=== PATIENT | female | born 1995 | race Caucasian/White ===

== ENCOUNTER 2019-08-25 19:50 | Emergency (ER) | payer OTHER, SELFPAY ==
--- NOTE | 2019-08-25 19:53 | ED.EYEPROB ---
HPI - Eye Problem General Chief complaint: Eye Problems Stated complaint: right eye injury Time Seen by Provider: 08/25/19 19:52 Source: patient and RN notes reviewed History of Present Illness HPI Narrative: Patient is a 23-year-old female that presents the urgent care with complaints of right eye irritation to the bottom lid. Patient states that approximately 20 minutes ago she was giving her son a bath and she thinks he scratched the bottom lid with his fingernail. Patient states that she used [id number] [employer] eyedrops prior to arrival. Patient denies any vision loss. No other acute complaints. No acute distress noted. Patient read the plan of care. Related Data Home Medications Medication Instructions Recorded Confirmed sertraline 50 mg PO DAILY 08/25/19 08/25/19 Allergies Allergy/AdvReac Type Severity Reaction Status Date / Time Penicillins Allergy Unknown Anaphylactic Verified 08/25/19 19:53 Shock Review of Systems Review of Systems: Narrative: CONSTITUTIONAL: Denies fever, chills, or sweats. EYES: Reports of right eye irritation and pain ENT: Denies rhinorrhea, congestion, sore throat, or otalgia. CARDIOVASCULAR: Denies chest pain, palpitations, or edema. RESPIRATORY: Denies cough or dyspnea. GASTROINTESTINAL: Denies abdominal pain, nausea, vomiting, or diarrhea. GENITOURINARY: Denies dysuria or hematuria. SKIN: Denies rash or itching. MUSCULOSKELETAL: Denies back pain, joint pain, or myalgia. NEUROLOGIC: Denies headache, numbness, or weakness. All other systems reviewed are negative, except as documented in HPI. PMFSH Comments At the time of my signature, I reviewed and agree with the nursing past medical, surgical, social, and family history. There is no relevant family history pertinent to the patient complaint. Exam Narrative: Exam Narrative: GENERAL: This is a well-nourished, well-developed patient, in no apparent distress. HEAD: normocephalic, atraumatic. EYES: PERRL. Sclera clear/white. Vision is grossly intact. Notable pinpoint external hordeolum to the right lower eyelid towards the more lateral aspect with mild surrounding erythema EARS: External ears normal NOSE: External nose normal with no obvious nasal discharge THROAT: Mucous membranes moist NECK: Neck supple CARDIOVASCULAR: Regular rate and rhythm without murmurs, gallops, or rubs. RESPIRATORY: Clear to auscultation. Breath sounds equal bilaterally. No wheezes, rales, or rhonchi. SKIN: warm, intact with no suspicious lesions or rash, good texture and turgor. NEURO: awake, alert, and oriented to person, place and time. There were no obvious focal neurologic abnormalities. EXTREMITIES: No clubbing, cyanosis, or edema. Course Vital Signs Vital signs: Vital Signs Temperature 98.6 F 08/25/19 19:55 Pulse Rate 100 08/25/19 19:55 Respiratory Rate 18 08/25/19 19:55 Blood Pressure 102/64 08/25/19 19:55 Pulse Oximetry 99 08/25/19 19:55 Temperature 98.6 F 08/25/19 19:55 Pulse Rate 100 08/25/19 19:55 Respiratory Rate 18 08/25/19 19:55 Blood Pressure 102/64 08/25/19 19:55 Pulse Oximetry 99 08/25/19 19:55 Reviewed MDM - Eye Problem MDM Narrative Medical decision making narrative: Advised the patient to use eyedrops as directed. However, irna-nqr-dityyhz stye medication works very well if eyedrops are pricey. Use warm compress to the eye. May use Claritin or Zyrtec as needed for itchiness. Styes tend to resolve on their own within a few days. If the area becomes more irritated or increases in redness and size?follow-up with an liquor store manager. Follow-up with your PCP within 2 to 5 days or for worsening symptoms or failure to improve. Differential Diagnosis Differential diagnosis: Likely corneal abrasion, conjunctivitis and periorbital cellulitis Critical Care Time Critical Care Time Critical Care Time: No Discharge Plan Discharge Clinical Impression: Hordeolum externum (stye) Qualifiers
[2019-08-25 19:55] VITALS: BP 102/64; PULSE 100; RESP 18; TEMP 37; O2SAT 99
== END 2019-08-25 20:05 | disposition home or self-care (01) ==
PROVIDERS: Emergency Provider Nurse Practitioner Family
DX: H00.012 Hordeolum externum right lower eyelid (principal)
CPT/HCPCS: 99213; G0463

== ENCOUNTER 2020-03-04 11:25 | Emergency (ER) | payer OTHER, SELFPAY ==
[2020-03-04 11:32] VITALS: BP 118/73; PULSE 91; RESP 18; TEMP 36.9; O2SAT 98
--- NOTE | 2020-03-04 11:59 | ED.GENADULT ---
HPI - General Adult General Chief complaint: Ear Stated complaint: tooth and ear pain Time Seen by Provider: 03/04/20 11:59 Source: patient and RN notes reviewed Mode of arrival: ambulatory Limitations: no limitations History of Present Illness HPI narrative: 24-year-old female who presents to [facility] care with complaints of left ear pain for the past 3 weeks which is now radiating to the left side of her face and into her lower jaw. Patient denies any fever chills or sweats, denies any sinus congestion or any drainage, no cough or any sinus pressure. Patient denies any dental pain or dental caries, states she maintains routine dental care. Patient states that she has been taking Tylenol and Aleve for her discomfort. MD complaint: ear pain left ear Onset (ago): week(s) (3) Location: face (left ear , left side of face and into jaw) Radiation: other (jaw) Severity: severe Severity scale (1-10): 8 Quality: aching Pain Consistency: constant Related Data Allergies Allergy/AdvReac Type Severity Reaction Status Date / Time Penicillins Allergy Unknown Anaphylactic Verified 03/04/20 11:38 Shock amoxicillin Allergy Anaphylactic Verified 03/04/20 11:39 Shock Review of Systems Review of Systems: Narrative: CONSTITUTIONAL: Denies fever, chills, or sweats. EYES: Denies visual changes, redness, or discharge. ENT: Denies rhinorrhea, congestion, sore throat, positive left ear otalgia with radiation to left jaw. CARDIOVASCULAR: Denies chest pain, palpitations, or edema. RESPIRATORY: Denies cough or dyspnea. GASTROINTESTINAL: Denies abdominal pain, nausea, vomiting, or diarrhea. GENITOURINARY: Denies dysuria or hematuria. SKIN: Denies rash or itching. MUSCULOSKELETAL: Denies back pain, joint pain, or myalgia. NEUROLOGIC: Denies headache, numbness, or weakness. PSYCHIATRIC: History of anxiety or depression. All systems reviewed & are unremarkable except as noted in HPI and below PMFSH Past Medical History Medical History (Updated 03/04/20 @ 19:46 by Leonora Chapman NP) Anxiety and depression Surgical History Surgical History (Updated 03/04/20 @ 19:45 by Leonora Chapman NP) History of tonsillectomy and adenoidectomy History of tubal ligation Social History Social History (Updated 03/04/20 @ 19:44 by Leonora Chapman NP) Smoking status: Never smoker Alcohol intake: current Substance use: never Living arrangements: with family Gender identity (if verbalized by the patient): Female Comments At time of signature, agree with nursing past medical, surgical, social history. There is no relevant family history pertinent to the presenting complaint Exam Narrative: Exam Narrative: GENERAL: Well-appearing, well-nourished, and in no acute distress. HEAD: Normocephalic, atraumatic. EYES: PERRLA and EOMI. ENT: Nares clear, no rhinorrhea or epistaxis. Mucous membranes moist.right ear normal with good light reflex, left ear occluded with wax removed with soft curette with canal which was un-visualized due to wax, reddened with no ear drainage noted. throat pink with no swelling or enlargement of tonsils NECK: Supple.no lymphadenopathy CHEST: Clear to auscultation. No respiratory distress.SAO2 98% on room air HEART: Regular rate and rhythm. No murmur heard. Normal peripheral pulses. ABDOMEN: Soft, nontender, nondistended, normal active bowel sounds. EXTREMITIES: Normal range of motion. No edema. SKIN: Warm, dry, no rash. NEURO: No focal deficits. Alert and oriented x3. Course Vital Signs Vital signs: Vital Signs Temperature 36.9 C 03/04/20 11:32 Pulse Rate 91 03/04/20 11:32 Respiratory Rate 18 03/04/20 11:32 Blood Pressure 118/73 03/04/20 11:32 Pulse Oximetry 98 03/04/20 11:32 Temperature 36.9 C 03/04/20 11:32 Pulse Rate 91 03/04/20 11:32 Respiratory Rate 18 03/04/20 11:32 Blood Pressure 118/73 03/04/20 11:32 Pulse Oximetry 98 03/04/20 11:32 Procedures Ear Wax Remova
== END 2020-03-04 12:24 | disposition home or self-care (01) ==
PROVIDERS: Emergency Provider Registered Nurse
DX: H61.22 Impacted cerumen, left ear (principal); H60.502 Unspecified acute noninfective otitis externa, left ear
CPT/HCPCS: 69210; 99213; G0463

== ENCOUNTER 2020-03-27 10:32 | Emergency (ER) | payer OTHER, SELFPAY ==
[2020-03-27 10:38] VITALS: BP 120/86; PULSE 95; RESP 18; TEMP 37.1; O2SAT 98
--- NOTE | 2020-03-27 10:45 | ED.DENTAL ---
HPI - Dental/Oral General Chief complaint: Dental/Oral Stated complaint: tooth/mouth pain Time Seen by Provider: 03/27/20 10:43 Source: patient and RN notes reviewed Mode of arrival: ambulatory Limitations: no limitations History of Present Illness HPI Narrative: 24-year-old female presents with concern for pain after having a tooth pulled 6 days ago. Reports she had an infection in a tooth, that was pulled. Reports she had taken doxycycline prior to the tooth being pulled. Denies taking antibiotics since the tooth being pulled. Reports the pain is beneath the extraction site, and her left jaw, radiating to her left ear and the left neck area. She reports taking ibuprofen regularly and [place] as needed. MD Complaint: tooth pain Related Data Home Medications Medication Instructions Recorded Confirmed hydrocodone-acetaminophen 1 tablet PO Q6H PRN 03/27/20 03/27/20 Allergies Allergy/AdvReac Type Severity Reaction Status Date / Time Penicillins Allergy Unknown Anaphylactic Verified 03/27/20 10:44 Shock amoxicillin Allergy Anaphylactic Verified 03/27/20 10:44 Shock Review of Systems Review of Systems: Narrative: CONSTITUTIONAL: Denies malaise, chills, sweats, or fever. EYES: Denies visual changes, redness, or discharge. ENT: Denies rhinorrhea, congestion, sinus pain, otalgia or sore throat. Reports left jaw pain, swelling CARDIOVASCULAR: Denies chest pain, palpitations, or edema. RESPIRATORY: Denies cough or dyspnea. GASTROINTESTINAL: Denies abdominal pain, nausea, vomiting MUSCULOSKELETAL: Denies myalgia. NEUROLOGIC: Denies headache. All systems reviewed & are unremarkable except as noted in HPI and below PMFSH Past Medical History Medical History (Updated 03/27/20 @ 10:51 by Brianna Huntley NP) Anxiety and depression Surgical History Surgical History (Updated 03/04/20 @ 19:45 by Leonora Chapman NP) History of tonsillectomy and adenoidectomy History of tubal ligation Social History Social History (Updated 03/04/20 @ 19:44 by Leonora Chapman NP) Smoking status: Never smoker Alcohol intake: current Substance use: never Gender identity (if verbalized by the patient): Female Comments At time of signature, agree with nursing past medical, surgical, social and family history. There is no relevant family history pertinent to the presenting complaint Exam Narrative: Exam Narrative: GENERAL: Well-appearing, well-nourished, and in no acute distress. HEAD: Normocephalic, atraumatic. EYES: PERRLA, conjunctivae clear ENT: Nares clear. Mucous membranes moist. TM pearly de [place] rosa with sharp light reflex bilaterally; no tragal tenderness. Oropharynx without edema, erythema or lesions. NECK: Supple. No lymphadenopathy. CHEST: No respiratory distress. Speaks in full sentences. HEART: Regular rate and rhythm. SKIN: Warm, dry, no rash. NEURO: Alert and oriented x3. PSYCH: Normal mood and affect Course Course Emergency Course: Patient is aware of diagnosis, understands and agrees to treatment plan. Anticipatory guidance given. Patient agrees to follow-up as directed and is aware of reasons to seek care at the emergency department. Portions of this record may have been created with voice recognition software Vital Signs Vital signs: Vital Signs Temperature 98.7 F 03/27/20 10:38 Pulse Rate 95 03/27/20 10:38 Respiratory Rate 18 03/27/20 10:38 Blood Pressure 120/86 03/27/20 10:38 Pulse Oximetry 98 03/27/20 10:38 Temperature 98.7 F 03/27/20 10:38 Pulse Rate 95 03/27/20 10:38 Respiratory Rate 18 03/27/20 10:38 Blood Pressure 120/86 03/27/20 10:38 Pulse Oximetry 98 03/27/20 10:38 Reviewed. MDM - Dental/Oral MDM Narrative Medical decision making narrative: Patients pain and complaint coupled with physical findings are consistant with dentalgia. There are no focal signs of space occupying lesions that are compromising to the airway; no dysphagia, odynopha
== END 2020-03-27 10:56 | disposition home or self-care (01) ==
PROVIDERS: Emergency Provider Nurse Practitioner
DX: K04.7 Periapical abscess without sinus (principal)
CPT/HCPCS: 99213; G0463

== ENCOUNTER 2020-11-14 14:28 | Emergency (ER) | payer OTHER, SELFPAY ==
[2020-11-14 14:38] VITALS: BP 128/83; PULSE 129; RESP 20; TEMP 36.3; O2SAT 99
--- NOTE | 2020-11-14 14:38 | ED.URI ---
HPI - URI/Sore Throat General Chief Complaint: Ear Stated Complaint: Pain on left side in Ear and Face Time Seen by Provider: 11/14/20 14:38 Source: patient and RN notes reviewed History of Present Illness HPI Narrative: Patient is a 25-year-old female who presents the urgent care with complaints of ongoing left ear pain that is now radiating to her throat and left face. Patient states that on the she was seen at another local clinic and prescribed eardrops and clindamycin. Patient states that she was unable to finish the clindamycin because it made her very sick with vomiting and diarrhea . Patient states that she has not been swimming or submerging her head underwater. States that she did finish the prescription of eardrops. States that she has been using Tylenol and Aleve for the pain with little improvement. Denies of any fever or other upper respiratory complaints. No other acute complaints. No acute distress noted. Patient aware of the plan of care. Some parts of this dictation were generated by voice recognition software and may contain typographical and/or grammatical inaccuracies. Related Data Home Medications Medication Instructions Recorded Confirmed hydrocodone-acetaminophen 1 tablet PO Q6H PRN 03/27/20 03/27/20 L norgest/e.estradiol-e.estrad 0.15 tablet PO DAILY 11/14/20 11/14/20 sertraline 50 mg PO DAILY 11/14/20 11/14/20 Allergies Allergy/AdvReac Type Severity Reaction Status Date / Time Penicillins Allergy Unknown Anaphylactic Verified 03/27/20 10:44 Shock amoxicillin Allergy Anaphylactic Verified 03/27/20 10:44 Shock Review of Systems Review of Systems: Narrative: CONSTITUTIONAL: Denies fever, chills, or sweats. EYES: Denies visual changes, redness, or discharge. ENT: Denies rhinorrhea, congestion, sore throat. Reports of left otalgia CARDIOVASCULAR: Denies chest pain, palpitations, or edema. RESPIRATORY: Denies cough or dyspnea. GASTROINTESTINAL: Denies abdominal pain, nausea, vomiting, or diarrhea. GENITOURINARY: Denies dysuria or hematuria. SKIN: Denies rash or itching. MUSCULOSKELETAL: Denies back pain, joint pain, or myalgia. NEUROLOGIC: Denies headache, numbness, or weakness. All other systems reviewed are negative, except as documented in HPI. [facility] Past Medical History Medical History (Updated 11/14/20 @ 14:50 by MICHAEL Sanchez) Anxiety and depression Surgical History Surgical History (Updated 03/04/20 @ 19:45 by Leonora Chapman NP) History of tonsillectomy and adenoidectomy History of tubal ligation Social History Social History (Updated 03/04/20 @ 19:44 by Leonora Chapman NP) Smoking status: Never smoker Alcohol intake: current Substance use: never Gender identity (if verbalized by the patient): Female Comments At the time of my signature, I reviewed and agree with the nursing past medical, surgical, social, and family history. There is no relevant family history pertinent to the patient complaint. Exam Narrative: Exam Narrative: GENERAL: This is a well-nourished, well-developed patient, in no apparent distress. HEAD: normocephalic, atraumatic. EYES: PERRL. Sclera clear/white. Vision is grossly intact. EARS: External ears normal, right auditory canal clear and without drainage, mild fluid noted behind right TM, right TM normal without perforation. Mild erythema noted to left auditory canal without edema or drainage. Left TM injected with large effusion. Hearing grossly intact. NOSE: External nose normal with no obvious nasal discharge, nares without redness, no rhinorrhea. THROAT: Mucous membranes moist, posterior pharynx clear. Moderate postnasal drainage NECK: Neck supple CARDIOVASCULAR: Regular rate and rhythm without murmurs, gallops, or rubs. RESPIRATORY: Clear to auscultation. Breath sounds equal bilaterally. No wheezes, rales, or rhonchi. SKIN: warm, intact with no suspicious lesions or rash, good texture and turgor. NE
== END 2020-11-14 15:00 | disposition home or self-care (01) ==
PROVIDERS: Emergency Provider Nurse Practitioner Family; PCP Hospitalist
DX: H66.92 Otitis media, unspecified, left ear (principal); F41.9 Anxiety disorder, unspecified; F32.9 Major depressive disorder, single episode, unspecified
CPT/HCPCS: 99213; G0463

== ENCOUNTER 2021-01-09 16:36 | Emergency (ER) | payer OTHER, SELFPAY ==
--- NOTE | 2021-01-09 16:39 | ED.DENTAL ---
HPI - Dental/Oral General Chief complaint: Dental/Oral Stated complaint: Toothache Time Seen by Provider: 01/09/21 16:39 Source: patient and RN notes reviewed History of Present Illness HPI Narrative: Patient is a 25-year-old female who presents the urgent care with complaints of upper left dental pain. Patient states that started approximately 1 week ago and is been increase in pain the last few days. Patient states that her dentist did tell her it needs to be removed but she has not had time to get the removal complete. Patient has been taking Tylenol and ibuprofen without much relief. States that she now has some left facial swelling. No other acute complaints. No acute distress noted. Patient aware of the plan of care. Some parts of this dictation were generated by voice recognition software and may contain typographical and/or grammatical inaccuracies. Related Data Home Medications Medication Instructions Recorded Confirmed L norgest/e.estradiol-e.estrad 0.15 tablet PO DAILY 11/14/20 01/09/21 sertraline 50 mg PO DAILY 11/14/20 01/09/21 Allergies Allergy/AdvReac Type Severity Reaction Status Date / Time amoxicillin Allergy Severe Anaphylactic Verified 01/09/21 17:08 Shock clindamycin Allergy Severe Swelling Verified 01/09/21 17:08 of Lip/Tongue/Throat Penicillins Allergy Severe Anaphylactic Verified 01/09/21 17:07 Shock Review of Systems Review of Systems: CONSTITUTIONAL: Denies fever, chills, or sweats. EYES: Denies visual changes, redness, or discharge. ENT: Denies rhinorrhea, congestion, sore throat, or otalgia. Reports of left upper dental pain CARDIOVASCULAR: Denies chest pain, palpitations, or edema. RESPIRATORY: Denies cough or dyspnea. GASTROINTESTINAL: Denies abdominal pain, nausea, vomiting, or diarrhea. GENITOURINARY: Denies dysuria or hematuria. SKIN: Denies rash or itching. MUSCULOSKELETAL: Denies back pain, joint pain, or myalgia. NEUROLOGIC: Denies headache, numbness, or weakness. All other systems reviewed are negative, except as documented in HPI. [facility] Past Medical History Medical History (Updated 01/09/21 @ 16:53 by MICHAEL Sanchez) Anxiety and depression Surgical History Surgical History (Updated 03/04/20 @ 19:45 by Leonora Chapman NP) History of tonsillectomy and adenoidectomy History of tubal ligation Social History Social History (Updated 03/04/20 @ 19:44 by Leonora Chapman NP) Smoking status: Never smoker Alcohol intake: current Substance use: never Gender identity (if verbalized by the patient): Female Comments At the time of my signature, I reviewed and agree with the nursing past medical, surgical, social, and family history. There is no relevant family history pertinent to the patient complaint. Exam Narrative: GENERAL: This is a well-nourished, well-developed patient, in no apparent distress. HEAD: normocephalic, atraumatic. EYES: PERRL. Sclera clear/white. Vision is grossly intact. EARS: External ears normal, auditory canals clear and without drainage, TMs normal without perforation. Hearing grossly intact. NOSE: External nose normal with no obvious nasal discharge, nares without redness, no rhinorrhea. THROAT: Mucous membranes moist, posterior pharynx clear. DENTAL: Buccal cusp of tooth #16 fractured/open with mild surrounding erythema, NECK: Neck supple, non-tender without lymphadenopathy CARDIOVASCULAR: Regular rate and rhythm without murmurs, gallops, or rubs. RESPIRATORY: Clear to auscultation. Breath sounds equal bilaterally. No wheezes, rales, or rhonchi. SKIN: warm, intact with no suspicious lesions or rash, good texture and turgor. NEURO: awake, alert, and oriented to person, place and time. There were no obvious focal neurologic abnormalities. EXTREMITIES: No clubbing, cyanosis, or edema. Course Vital Signs Vital signs: Vital Signs Temperature 98.7 F 01/09/21 16:42 Pulse Rate 100 01/09/21 16:42 R
[2021-01-09 16:42] VITALS: BP 123/69; PULSE 100; RESP 20; TEMP 37.1; O2SAT 100
== END 2021-01-09 17:10 | disposition home or self-care (01) ==
PROVIDERS: Emergency Provider Nurse Practitioner Family
DX: K04.7 Periapical abscess without sinus (principal); F41.9 Anxiety disorder, unspecified; F32.9 Major depressive disorder, single episode, unspecified
CPT/HCPCS: 99213; G0463

== ENCOUNTER 2022-02-03 10:40 | Emergency (ER) | payer OTHER, SELFPAY ==
--- NOTE | 2022-02-03 10:41 | ED.URI ---
HPI - URI/Sore Throat General Chief Complaint: Upper Respiratory Infection Stated Complaint: Sore Throat Time Seen by Provider: 02/03/22 10:41 Source: patient and RN notes reviewed History of Present Illness HPI Narrative: Patient is a 26-year-old female who presents the urgent care with complaints of a sore throat, headache and fever since . Patient denies of any ill exposures. States that she has been taking Tylenol, ibuprofen and cold and flu medication. Patient states the sore throat is now because neck pain. Patient states her children are all now symptomatic since this weekend. No other acute complaints. No acute distress noted. Patient aware of the plan of care. Some parts of this dictation were generated by voice recognition software and may contain typographical and/or grammatical inaccuracies. Related Data Home Medications Medication Instructions Recorded Confirmed sertraline 50 mg tablet 50 mg PO DAILY 11/14/20 02/03/22 Allergies Allergy/AdvReac Type Severity Reaction Status Date / Time amoxicillin Allergy Severe Anaphylactic Verified 02/03/22 11:17 Shock clindamycin Allergy Severe Swelling Verified 02/03/22 11:17 of Lip/Tongue/Throat Penicillins Allergy Severe Anaphylactic Verified 02/03/22 11:17 Shock Review of Systems Review of Systems: CONSTITUTIONAL: Reports a fever EYES: Denies visual changes, redness, or discharge. ENT: Denies rhinorrhea, congestion, otalgia. Reports of sore throat CARDIOVASCULAR: Denies chest pain, palpitations, or edema. RESPIRATORY: Denies cough or dyspnea. GASTROINTESTINAL: Denies abdominal pain, nausea, vomiting, or diarrhea. GENITOURINARY: Denies dysuria or hematuria. SKIN: Denies rash or itching. MUSCULOSKELETAL: Denies back pain, joint pain, or myalgia. NEUROLOGIC: Reports of headache All other systems reviewed are negative, except as documented in HPI. [facility] Past Medical History Medical History (Updated 02/03/22 @ 11:34 by MICHAEL Sanchez) Anxiety and depression Surgical History Surgical History (Updated 03/04/20 @ 19:45 by Leonora Chapman NP) History of tonsillectomy and adenoidectomy History of tubal ligation Social History Social History (Updated 03/04/20 @ 19:44 by Leonora Chapman NP) Smoking status: Never smoker Alcohol intake: current Substance use: never Gender identity (if verbalized by the patient): Female Comments At the time of my signature, I reviewed and agree with the nursing past medical, surgical, social, and family history. There is no relevant family history pertinent to the patient complaint. Exam Narrative: GENERAL: This is a well-nourished, well-developed patient, in no apparent distress. HEAD: normocephalic, atraumatic. EYES: PERRL. Sclera clear/white. Vision is grossly intact. EARS: External ears normal, auditory canals clear and without drainage, TMs normal without perforation. Hearing grossly intact. NOSE: External nose normal with no obvious nasal discharge, nares without redness, clear rhinorrhea. THROAT: Mucous membranes moist, mild to moderate erythema noted posterior oropharynx with moderate postnasal drainage NECK: Neck supple, mild bilateral submandibular lymphadenopathy CARDIOVASCULAR: Regular rate and rhythm without murmurs, gallops, or rubs. RESPIRATORY: Clear to auscultation. Breath sounds equal bilaterally. No wheezes, rales, or rhonchi. SKIN: warm, intact with no suspicious lesions or rash, good texture and turgor. NEURO: awake, alert, and oriented to person, place and time. There were no obvious focal neurologic abnormalities. EXTREMITIES: No clubbing, cyanosis, or edema. Course Course Level of Care: Express Care Visit Vital Signs Vital signs: Vital Signs Temperature 97.8 F 02/03/22 10:54 Pulse Rate 94 02/03/22 10:54 Respiratory Rate 16 02/03/22 10:54 Blood Pressure 116/69 02/03/22 10:54 Pulse Oximetry 100 02/03/22 10:54 Oxygen Delivery
[2022-02-03 10:54] VITALS: BP 116/69; PULSE 94; RESP 16; TEMP 36.6; O2SAT 100
== END 2022-02-03 11:45 | disposition home or self-care (01) ==
PROVIDERS: Emergency Provider Nurse Practitioner Family
DX: J02.0 Streptococcal pharyngitis (principal); F41.9 Anxiety disorder, unspecified; F32.A Depression, unspecified
CPT/HCPCS: 87880; 99213; G0463

== ENCOUNTER 2022-06-27 14:29 | Emergency (ER) | payer OTHER, SELFPAY ==
--- NOTE | 2022-06-27 14:37 | ED.URI ---
HPI - URI/Sore Throat General Chief Complaint: Upper Respiratory Infection Stated Complaint: flu symptoms with chest pressure Time Seen by Provider: 06/27/22 14:38 Source: patient Mode of arrival: ambulatory Limitations: no limitations History of Present Illness HPI Narrative: Mariia is a 26-year-old female patient presenting to the clinic today with complaints of flu symptoms/chest pressure x2 days. She reports she has cough, mild shortness of breath, congestion, fever, ear pain, and sore throat MD elicited complaint: sore throat and nasal congestion Related Data Allergies Allergy/AdvReac Type Severity Reaction Status Date / Time amoxicillin Allergy Severe Anaphylactic Verified 06/27/22 15:05 Shock clindamycin Allergy Severe Swelling Verified 06/27/22 15:05 of Lip/Tongue/Throat Penicillins Allergy Severe Anaphylactic Verified 06/27/22 15:05 Shock Review of Systems Review of Systems: Pertinent positives per HPI. Patient denies any rash, headache, visual changes, dizziness, shortness of breath, chest pain, palpitations, nausea, vomiting, diarrhea, constipation, abdominal pain, or any urinary issues. [facility] Past Medical History Medical History Anxiety and depression Surgical History Surgical History History of tonsillectomy and adenoidectomy History of tubal ligation Social History Social History Smoking status: Never smoker Alcohol intake: current Substance use: never Living arrangements: with family Gender identity (if verbalized by the patient): Female Comments At the time of my signature, I reviewed and agree with the nursing past medical, surgical, social, and family history. There is no relevant family history pertinent to the patient complaint. Exam Narrative: General: Well-developed, obese, in no apparent distress Head: Normocephalic, atraumatic Eyes: Pupils equally round and reactive to light bilaterally, EOM intact, sclera and conjunctive clear, no discharge, lids normal Ears: TMs intact and clear, ear canals clear, no drainage, grossly hearing normal. Nose: Nares patent, clear nasal discharge, no inflammation, no sinus tenderness. Mouth: Oral pharynx without lesions or masses, good dentition, MMM. Oropharynx red Neck: Supple, trachea midline, no enlargement of anterior or posterior cervical nodes, no thyroid masses or goiter palpable. Cardio: Regular rate and rhythm, s1 and s2 normal, no murmur appreciated. Resp: Clear to auscultation bilaterally, no rhonchi, rales, wheezing or rubs Course Course Emergency Course: Portions of this record may have been created with voice recognition software. Level of Care: Express Care Visit Vital Signs Vital signs: Vital Signs Temperature 36.8 C 06/27/22 14:47 Pulse Rate 116 H 06/27/22 14:47 Respiratory Rate 16 06/27/22 14:47 Blood Pressure 117/76 06/27/22 14:47 Pulse Oximetry 98 06/27/22 14:47 Oxygen Delivery Room Air 06/27/22 14:47 Temperature 36.8 C 06/27/22 14:47 Pulse Rate 116 H 06/27/22 14:47 Respiratory Rate 16 06/27/22 14:47 Blood Pressure 117/76 06/27/22 14:47 Pulse Oximetry 98 06/27/22 14:47 Oxygen Delivery Room Air 06/27/22 14:47 Vital signs reviewed MDM - URI/Sore Throat MDM Narrative Medical decision making narrative: At the time of visit patient is resting comfortably on the exam table. Influenza, COVID, and strep testing were all negative in the clinic today. We will send strep for culture. Supportive measures were discussed with the patient she voiced understanding of discharge instructions agrees to treatment plan. Prescription for albuterol was given to the patient for mild shortness of breath. Differential Diagnosis Differential diagnosis: Likely upper respiratory infection
[2022-06-27 14:47] VITALS: BP 117/76; PULSE 116; RESP 16; TEMP 36.8; O2SAT 98
== END 2022-06-27 15:35 | disposition home or self-care (01) ==
PROVIDERS: Emergency Provider Nurse Practitioner Family; PCP Emergency Medicine
DX: J06.9 Acute upper respiratory infection, unspecified (principal); J02.9 Acute pharyngitis, unspecified; B34.9 Viral infection, unspecified; Z20.822 Contact with and (suspected) exposure to COVID-19
CPT/HCPCS: 87081; 87426; 87804; 87880; 99213; C9803; G0463

== ENCOUNTER 2023-01-24 09:40 | Emergency (ER) | payer OTHER, SELFPAY ==
[2023-01-24 09:46] VITALS: BP 99/77; PULSE 95; RESP 20; TEMP 36.2; O2SAT 100
--- NOTE | 2023-01-24 09:50 | ED.GENADULT ---
HPI - General Adult General Chief complaint: Upper Respiratory Infection Stated complaint: fatigue/tight chest Source: patient and RN notes reviewed History of Present Illness HPI narrative: 27 yo F presents to urgent care with at side. Pt states she began not feeling well on Thursday with a MITTAL, congestion, and cough. Pt states she feels chest tightness and SOB, worse this morning. Pt reports a low grade fever last night. Denies any N/V/D, abdominal pain, dysuria, sore throat, or ear pain. Pt has been taking her Albuterol inhaler and OTC cold and flu meds with minimal relief. Related Data Allergies Allergy/AdvReac Type Severity Reaction Status Date / Time amoxicillin Allergy Severe Anaphylactic Verified 01/24/23 09:53 Shock clindamycin Allergy Severe Swelling Verified 01/24/23 09:53 of Lip/Tongue/Throat Penicillins Allergy Severe Anaphylactic Verified 01/24/23 09:53 Shock Review of Systems Review of Systems: Pertinent positives and pertinent negatives per HPI. [facility] Past Medical History Medical History Anxiety and depression Surgical History Surgical History History of tonsillectomy and adenoidectomy History of tubal ligation Social History Social History Smoking status: Never smoker Alcohol intake: current Substance use: never Living arrangements: with family Gender identity (if verbalized by the patient): Female Comments At the time of my signature, I reviewed and agree with the nursing past medical, surgical, social, and family history. There is no relevant family history pertinent to the patient complaint. Exam Narrative: GENERAL: This is a well-nourished, well-developed patient, in no apparent distress. HEAD: normocephalic, atraumatic. EYES: Sclera clear/white. Vision is grossly intact. EARS: External ears normal, auditory canals clear and without drainage. Hearing grossly intact. NOSE: External nose normal with no obvious nasal discharge, nares without redness, no rhinorrhea. THROAT: Mucous membranes moist, posterior pharynx clear. NECK: Neck supple, non-tender without lymphadenopathy, masses or thyromegaly. CARDIOVASCULAR: Regular rate and rhythm without murmurs, gallops, or rubs. RESPIRATORY: Clear to auscultation. Breath sounds equal bilaterally. No wheezes, rales, or rhonchi. GASTROINTESTINAL: Abdomen soft, non-tender, nondistended. Bowel sounds are active. No hepato-splenomegaly, or palpable masses. No guarding. SKIN: warm, intact with no suspicious lesions or rash, good texture and turgor. NEURO: awake, alert, and oriented to person, place and time. There were no obvious focal neurologic abnormalities. Course Course Level of Care: Express Care Visit Vital Signs Vital signs: Vital Signs Temperature 97.2 F L 01/24/23 09:46 Pulse Rate 95 01/24/23 09:46 Respiratory Rate 20 01/24/23 09:46 Blood Pressure 99/77 L 01/24/23 09:46 Pulse Oximetry 100 01/24/23 09:46 Oxygen Delivery Room Air 01/24/23 09:46 Temperature 97.2 F L 01/24/23 09:54 Pulse Rate 95 01/24/23 09:54 Respiratory Rate 20 01/24/23 09:54 Blood Pressure 99/77 L 01/24/23 09:54 Pulse Oximetry 100 01/24/23 09:54 Oxygen Delivery Room Air 01/24/23 09:54 Reviewed Medical Decision Making MDM Narrative Medical decision making narrative: Viral illness may last between 7-12days; antibiotic is NOT recommended at this time. Recommend antihistamine such as Benadryl at night time and Claritin/Zyrtec/Leonor during the day. Increase your Vitamin C intake. Steam from hot showers help with congestion. Use inhaler as needed for cough, wheezing, shortness of breath or chest tightness. Also, recommend symptomatic treatment includes: rest, fluids, increase humidity of the air at home wi
[2023-01-24 09:54] VITALS: BP 99/77; PULSE 95; RESP 20; TEMP 36.2; O2SAT 100
[2023-01-24] MEDS: predniSONE 20 MG TABLET 60 MG PO (10:05)
== END 2023-01-24 10:09 | disposition home or self-care (01) ==
PROVIDERS: Emergency Provider Nurse Practitioner Family
DX: J40 Bronchitis, not specified as acute or chronic (principal); J06.9 Acute upper respiratory infection, unspecified
CPT/HCPCS: 99213; G0463; J7512

== ENCOUNTER 2023-08-12 11:45 | Emergency (ER) | payer OTHER, SELFPAY ==
[2023-08-12 11:55] VITALS: BP 117/77; PULSE 97; RESP 16; TEMP 37.1; O2SAT 98
--- NOTE | 2023-08-12 12:24 | ED.GENADULT ---
HPI - General Adult General Chief complaint: Dental/Oral Stated complaint: Toothache/Ear Pain Source: patient, RN notes reviewed and old records reviewed Mode of arrival: ambulatory Limitations: no limitations History of Present Illness HPI narrative: 27-year-old female presents to [facility] with complaints right ear pain that started 3-4 days ago, patient states pain now going into jaw and teeth. Patient has not taken anything for pain. Patient denies any other symptoms. Related Data Home Medications Medication Instructions Recorded Confirmed ergocalciferol (vitamin D2) 1,250 See Rx Instructions .Route .COMPLEX 08/12/23 08/12/23 mcg (50,000 unit) capsule Allergies Allergy/AdvReac Type Severity Reaction Status Date / Time amoxicillin Allergy Severe Anaphylactic Verified 08/12/23 12:14 Shock clindamycin Allergy Severe Swelling Verified 08/12/23 12:14 of Lip/Tongue/Throat Penicillins Allergy Severe Anaphylactic Verified 08/12/23 12:14 Shock Review of Systems Constitutional: Constitutional: Reports no additional constitutional complaints, Denies body ache(s), Denies chills, Denies fatigue, Denies fever(s) and Denies headache(s) Eyes: Eyes: Reports no additional eye complaints and Denies blurry vision ENT: Reports system reviewed and no additional complaints, except as documented, Denies vertigo, Denies dizziness, Denies ear discharge, Reports otalgia, Denies facial pain, Denies headache(s), Reports mouth pain, Denies nasal congestion, Denies nasal discharge, Denies sinus pain, Denies sinus pressure and Denies sore throat Cardiovascular: Cardiovascular: Reports no additional cardiovascular complaints, Denies chest pain, Denies chest pain at rest, Denies rapid heart rate and Denies dyspnea Respiratory: Respiratory: Reports no additional respiratory complaints, Denies chest congestion, Denies cough, Denies pain on inspiration, Denies pain with cough and Denies dyspnea Gastrointestinal: Gastrointestinal: Denies abdominal pain, Denies diarrhea, Denies nausea and Denies vomiting Integumentary/Breasts: Skin/Breast: Denies rash Neurologic: Reports system reviewed and no additional complaints, except as documented, Denies vertigo, Denies dizziness and Denies headache(s) Endocrine: Endocrine: Denies fatigue PMFSH Past Medical History Medical History Anxiety and depression Surgical History Surgical History History of tonsillectomy and adenoidectomy History of tubal ligation Social History Social History Smoking status: Never smoker Alcohol intake: current Substance use: never Living arrangements: with family Gender identity (if verbalized by the patient): Female Comments At the time of my signature, I reviewed and agree with the nursing past medical, surgical, social, and family history. There is no relevant family history pertinent to the patient complaint. Exam Const: General: cooperative, healthy appearing, no acute distress and well nourished Nutritional Appearance: well nourished Orientation/consciousness: patient oriented x3 Limitations: no limitations HENMT: Head: normal to inspection and normocephalic Ears: external ears normal, EAC's normal, mastoids normal and TM abnormal bulging on the right and erythematous on the right Face/Nose/Sinus: normal facial exam Face and sinus: normal facial exam Mouth: Yes Normal oral and palatal mucosa present, Yes oropharynx normal and Yes moist mucous membranes Throat: tonsils normal, uvula midline and no uvular edema Eyes: General: appearance normal, both eyes and all related structures Sclera: sclerae normal Pupils: Equal, round and reactive pupils present Resp: Effort & Inspection: normal respiratory effort, able to speak in complete sentences, no audible wheezes,
== END 2023-08-12 12:30 | disposition home or self-care (01) ==
PROVIDERS: Emergency Provider Registered Nurse; PCP Family Medicine
DX: H66.91 Otitis media, unspecified, right ear (principal)
CPT/HCPCS: 99213; G0463

== ENCOUNTER 2024-03-15 18:32 | Emergency (ER) | payer OTHER, SELFPAY ==
[2024-03-15 18:38] VITALS: BP 107/74; PULSE 111; RESP 20; TEMP 36.4; O2SAT 98
[2024-03-15 19:27] LABS: EDUAAPPEAR Clear; EDUABILI 3+ (Negative); EDUABLOOD Negative (Negative); EDUACOLOR1 Dark; EDUAGLUCOSE 1+ (Negative); EDUAKETONE 1+ (Negative); EDUALEUKO 3+ (Negative); EDUANITRATE Positive (Negative); EDUAPROTEIN 3+ (Negative)
--- NOTE | 2024-03-15 19:35 | ED.GENADULT ---
HPI - General Adult General Chief complaint: Urogenital-Female Stated complaint: Poss UTI Time Seen by Provider: 03/15/24 19:35 Source: patient, RN notes reviewed and old records reviewed Mode of arrival: ambulatory Limitations: no limitations History of Present Illness HPI narrative: 28-year-old female to Express Care with complaint of bladder pain, urinary frequency, lower abdominal cramping for 2 days. Patient states she has been taking AZO for 2 days. Patient tachycardic in triage. Patient denies bowel changes, abdominal pain, nausea vomiting, pertinent medical history. Patient able to tolerate fluids by mouth. Patient resting comfortably in exam room in no acute distress. Related Data Allergies Allergy/AdvReac Type Severity Reaction Status Date / Time amoxicillin Allergy Severe Anaphylactic Verified 03/15/24 19:22 Shock clindamycin Allergy Severe Swelling Verified 03/15/24 19:22 of Lip/Tongue/Throat Penicillins Allergy Severe Anaphylactic Verified 03/15/24 19:22 Shock sumatriptan Allergy Rash Verified 03/15/24 19:22 Review of Systems Review of Systems: All systems reviewed & are unremarkable except as noted in HPI and below Constitutional: Constitutional: Reports no additional constitutional complaints Eyes: Eyes: Reports no additional eye complaints ENT: Reports system reviewed and no additional complaints, except as documented Cardiovascular: Cardiovascular: Reports no additional cardiovascular complaints, Denies chest pain and Denies dyspnea Respiratory: Respiratory: Reports no additional respiratory complaints, Denies cough and Denies dyspnea Gastrointestinal: Gastrointestinal: Reports GI cramping ( lower abdominal) Genitourinary: Genitourinary: Reports as per HPI, Reports nocturia and Reports other ( Bladder pain) Musculoskeletal: Musculoskeletal: Reports no additional musculoskeletal complaints Neurologic: Reports system reviewed and no additional complaints, except as documented Psychiatric: Psychiatric: Reports no additional psychiatric complaints [facility] Past Medical History Medical History Anxiety and depression Surgical History Surgical History History of tonsillectomy and adenoidectomy History of tubal ligation Social History Social History Smoking status: Never smoker Alcohol intake: current Substance use: never Living arrangements: with family Gender identity (if verbalized by the patient): Female Comments At the time of my signature, I reviewed and agree with the nursing past medical, surgical, social, and family history. There is no relevant family history pertinent to the patient complaint. Exam Const: General: cooperative, comfortable, no acute distress, alert and well nourished Nutritional Appearance: well nourished Orientation/consciousness: patient oriented x3 Limitations: no limitations HENMT: Head: normal to inspection Ears: external ears normal Face/Nose/Sinus: Normal external nose present, Normal nares present, normal facial exam, No erythema and No edema Face and sinus: normal facial exam, no erythema and no edema Mouth: Yes Normal oral and palatal mucosa present Eyes: General: appearance normal, both eyes and all related structures Neck: Neck: normal visual inspection, full ROM and no meningeal signs Chest: Chest palpation & inspection: normal inspection of the chest Resp: Effort & Inspection: normal respiratory effort and able to speak in complete sentences Cardio: Jugular venous distension: no JVD Rate: regular rate Back/Spine/Pelvis: Cervical Spine: cervical ROM normal Skin: General skin exam: normal color, no rashes or lesions noted and turgor normal Neuro: General: patient oriented x3, gait normal, moves all extremities and no meningeal signs Speech: normal speech Gait exam (Neuro): Normal gait present Extrem: General: normal to inspection, full ROM and capillary refill normal Psych: Appearance: grossly normal and well kempt Course Course Emergency Course: Some parts of this dictation were generated by voice recognition software and may contain typographical and/or grammatical inaccuracies. Level of Care: Express Care Visit Vital Signs Vital signs: Vital Signs Temperature 36.4 C 03/15/24 18:38 Pulse Rate 111 H 03/15/24 18:38 Respiratory Rate 20 03/15/24 18:38 Blood Pressure 107/74 03/15/24 18:38 Pulse Oximetry 98 03/15/24 18:38 Oxygen Delivery Room Air 03/15/24 18:38 Temperature 36.4 C 03/15/24 18:38 Pulse Rate 111 H 03/15/24 18:38 Respiratory Rate 20 03/15/24 18:38 Blood Pressure 107/74 03/15/24 18:38 Pulse Oximetry 98 03/15/24 18:38 Oxygen Delivery Room Air 03/15/24 18:38 reviewed Medical Decision Making MDM Narrative Medical decision making narrative: 28-year-old female to Express Care with complaint of bladder pain, urinary frequency, lower abdominal cramping for 2 days. Patient states she has been taking AZO for 2 days. Patient tachycardic in triage. Patient denies bowel changes, abdominal pain, nausea vomiting, pertinent medical history. Patient able to tolerate fluids by mouth. Patient resting comfortably in exam room in no acute distress. Patient is sitting comfortably in exam room nontoxic in appearance. patient exam unremarkable. UA unreliable d/t AZO. Culture sent. Patient appropriate for outpatient treatment and follow-up. Discharge instructions reviewed with patient, as well as provided in writing per nursing staff. The instructions also include specific and strict return/GO TO THE ER as well as f/u information. All questions have been answered, and the patient deny any further questions with discharge and discharge plan. Some parts of this dictation were generated by voice recognition software and may contain typographical and/or grammatical inaccuracies. Differential Diagnosis Differential Diagnosis: UTI, STI, acute cystitis, yeast infection, abdominal pain Vital Signs Vital Signs: Vital Signs Temperature 36.4 C 03/15/24 18:38 Pulse Rate 111 H 03/15/24 18:38 Respiratory Rate 20 03/15/24 18:38 Blood Pressure 107/74 03/15/24 18:38 Pulse Oximetry 98 03/15/24 18:38 Oxygen Delivery Room Air 03/15/24 18:38 Temperature 36.4 C 03/15/24 18:38 Pulse Rate 111 H 03/15/24 18:38 Respiratory Rate 20 03/15/24 18:38 Blood Pressure 107/74 03/15/24 18:38 Pulse Oximetry 98 03/15/24 18:38 Oxygen Delivery Room Air 03/15/24 18:38 Lab Data Labs: Lab Results 03/15/24 Range/Units 19:04 POC Urine Color Dark POC Urine Clarity Clear POC Urine pH 5.0 POC Ur Specif [place] 1.010 POC Urine Protein 3+ (Negative) POC Ur Glucose (UA) 1+ (Negative) POC Urine Ketones 1+ (Negative) POC Urine Blood Negative (Negative) POC Urine Nitrite Positive (Negative) POC Urine Bilirubin 3+ (Negative) POC Urine Urobilinogen 8.0 POC U Leukocyte Esteras 3+ (Negative) Discharge Plan Discharge Clinical Impression: Urinary tract infection Patient Disposition: Home, Self-Care Condition: Stable Instructions: Urinary Tract Infection in Women (DC) Additional Instructions: We will send a urine culture off to the lab; if the culture identifies an organism that the prescribed antibiotic will not treat, you will receive a phone call from an urgent care staff member and an appropriate antibiotic will be prescribed. -Your symptoms should begin to improve within a day of starting antibiotics. But you should finish all the antibiotic pills you get. Otherwise your infection might come back. -Also recommend: drink more fluid. It might help flush out germs, and it does no harm -Tylenol/ibuprofen as needed for pain -Follow-up with your primary care provider for urine recheck OR if your symptoms persist, change or worsen significantly before you can contact your personal physician then please, without delay, go to the emergency department for further evaluation. Prescriptions: New nitrofurantoin macrocrystal 100 mg capsule 100 mg PO Q12H Qty: 10 5RF Rx Instructions: must administer with a meal/food Follow-up/Referrals: Deshaun,Veronica Delacruz MD [Primary Care Provider] - Stand Alone Forms: Work/School Release IP
== END 2024-03-15 19:45 | disposition home or self-care (01) ==
PROVIDERS: Emergency Provider Nurse Practitioner Family; PCP Family Medicine
DX: N39.0 Urinary tract infection, site not specified (principal)
CPT/HCPCS: 81003; 87086; 99213; G0463

== ENCOUNTER 2024-09-01 17:08 | Emergency (ER) | payer OTHER, SELFPAY ==
--- OUTSIDE RECORDS SUMMARY | 2024-09-01 17:12 | XMS_ITS | Clinical Summary ---
Author Organization [facility] Address [address] [place] [address] Care Team Providers Care Oncologist Name Role Phone Veronica Woodward MD Primary Care Provider Allergies Active Allergy Reactions Criticality Noted Date Comments Penicillins Hives,Anaphylaxis,Ur ticar ia High 09/02/2010 Reaction: HIVES, Reaction: HIVES, Sesame Oil Hives Medium 09/07/2017 Sumatriptan Anaphylaxis High Unknown Medications levonorgestrel & ethinyl estradiol (AMETHIA) 0.15 mg-30 mcg tablets,dose pack,3 month Take 1 tablet by mouth daily 3 9 Active sertraline (ZOLOFT) 50 mg tablet Take 1 tablet (50 mg total) by mouth daily 6 9 Active doxylamine (UNISOM) 25 mg tablet Take 1 tablet (25 mg total) by mouth nightly as needed for sleep Active multivit-iron- min-folic acid 18-0.4 mg tablet Take by mouth Active chlorhexidine (PERIDEX) 0.12 % solutionIndica tions:Dental abscess Swish and spit 15 mL 2 (two) times a day 473 mL 0 Active Additional Information Patient not taking.Reported on 10/04/2020 doxycycline (VIBRAMYCIN) 100 mg capsule Take 1 tablet/capsule (100 mg total) by mouth 2 (two) times a day 20 capsule 0 Active Additional Information Patient not taking.Reported on 10/04/2020 albuterol HFA (PROVENTIL HFA,VENTOLIN HFA,PROAIR HFA) 90 mcg/actuation inhaler Inhale 2 puffs every 4 (four) hours as needed for wheezing 1 each 1 Active albuterol 2.5 mg /3 mL (0.083 %) nebulizer solution Take 3 mL (2.5 mg total) by nebulization every 6 (six) hours as needed for wheezing 75 mL 1 Active azithromycin (ZITHROMAX) 250 mg tablet Take 1 tablet (250 mg total) by mouth daily Take first 2 tablets together, then 1 every day until finished. 6 tablet 1 Active Additional Information Patient not taking.Reported on 02/20/2023 naproxen (NAPROSYN) 500 mg tabletIndicati ons:Dentalgia Take 1 tablet (500 mg total) by mouth 2 (two) times a day with meals P.r.n. pain and swelling. Collaborating physician Wilian Walker MD 30 tablet 4 Active chlorhexidine (PERIDEX) 0.12 % solutionIndica tions:Dentalgi a,Dental infection,Smyth al caries Apply 15 mL to the mouth or throat 3 (three) times a day Swish around in mouth for 5 minutes then spit out. Collaborating physician Wilian Walker MD 240 mL 4 Active Active Problems Problem Noted Date Diagnosed Date Dentalgia 09/23/2023 Dental caries 09/23/2023 Clinical diagnosis of COVID-19 05/16/2021 Morbid (severe) obesity due to excess calories 0 07/17/2020 Overview (02/20/2023): Last Assessment & Plan: Condition: stable Co-morbidities: Asthma and migraine Discussed continued behavior modification with Muna to include increasing her level of exercise to 3-4 times weekly after clearance from your PCP, adding more vegetables and whole foods to her diet and reducing their intake of fast foods/foods high in sugar, salt, trans fats and preservatives. Follow up in: four months Asthma 10/24/2013 Overview (02/20/2023): Last Assessment & Plan: Condition: asymptomatic Patient is asymptomatic at this visit. Continue medications as prescribed and follow up with PCP/specialist as scheduled. Reviewed trigger avoidance and reviewed proper use of inhalers and rescue medications. Reviewed concerning signs/symptoms and ER precautions. Follow up in: four months Migraine headache 05/31/2012 Overview (02/20/2023): Last Assessment & Plan: Condition: asymptomatic Patient is asymptomatic at this visit. Continue medications as prescribed and follow up with PCP/specialist as scheduled. Follow up in: six months Vaginal delivery 38 weeks gestation of SGA (small for gestational age) Resolved Problems Problem Noted Date Diagnosed Date Resolved Date VSD (ventricular septal defe ct), perimembranous 08/07/2017 10/28/2017 Abnormal umbilical cord 06/21/201710/16 Overview (06/21/2017): Possible 2 vessel delivery 05/01/2017 10/28/2017 Overview (05/01/2017): 35 week delivery with first child. Second child, pt was on [place] Encounters Date Type Department Care Team Description 08/04/2024 11:01 AM CDT - 08/04/2024 12:30 PM CDT Emergency [facility] Emergency Department [address] [place] [address] Fall, initial encounter (Primary Dx); Acute right ankle pain Discharge Disposition: Discharge to home or self care from Last 3 Months Immunizations Immunization Administration Dates Next Due DTP / HiB 02/25/1996, 6,04/02/1995,01/22 DTaP 01/23/1999 HPV, Quadrivalent 04/27/2008,05/26/2007,12/19/19 07 Hep A, Pediatric 12/26/2005,08/29/2004 Hep B, Adolescent or Pediatric 06/04/1995,1994,1994 Influenza LAIV (Nasal) 04/15/2012 Influenza, Quadrivalent, Spl it, Preservative Free, Intramuscular 05/01/2017,03/06/2015,02/21/2014,07/13 Influenza, Unspecified 01/14/2021(Deferr ed: Patient Refused),01/14/2021(Deferred: Patient Refused),05/18/2019(Deferred: Patient Refused),05/18/2019(Deferred: Patient Refused),03/12/2011,04/26/2009 MMR 01/23/1999,02/25/1996 Meningococcal MCV4P (Menactra) 07/13/2013,2007 OPV 01/23/1999, 6,04/02/1995,01/22 Pneumococcal Polysaccharide PPV23 04/18/2014 Tdap 04/18/2014,09/06/2006 Surgical History Surgery Date Site/Laterality Comments TONSILLECTOMY D&C FIRST TRIMESTER / TX INC OMPLETE / MISSED / SEPTIC / INDUCED 12/16/2016 - 01/15/2017 Medical History Medical History Date Comments Asthma 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 Migraine denies Urinary tract infection before s he got PONV (postoperative nausea and vomiting) Miscarriage 02/04/2018 7 weeks Varicella had when she was 6 years old Family History Medical History Relation Name Comments Diabetes Father Cervical cancer Mother Diabetes Paternal Grandfather Relation Name Status Comments Father Mother Paternal Grandfather Social History Tobacco Use Types Packs/Day Years Used Date Smoking Tobacco: Former Cigarettes Smokeless Tobacco: Never Alcohol Use Standard Drinks/Week Comments No 0 (1 standard drink = 0.6 oz pur e alcohol) Personal Safety Answer Date Recorded Have you ever been in or are you currently in a harmful physical or emotional relationship or is someone making you feel afraid or unsafe? 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 Gender Identity Not on file Sexual Orientation Not on file Obstetrics History Para Term AB IAB SAB Ectopic Multiple Livin g Live Births 5 3 2 1 1 1 0 3 3 Date Outcome GA Total Labor Labor/2nd/3rd Weight Sex Type Anes PTL Michelle A1 A5 Name Clin 2013 35w 0d 2.495 kg (5 lb 8 oz) F Vag-S pont Epidur al Y Livin kenya Mcqueen igh Complications: delive ry 2015 Term 38w 3d 2.268 kg (5 lb) F Vag-S pont Epidur al N Livin kenya Hughes Complications:None 2016 SAB 8w0 d D&C 2017 Term 38w 5d 4h 31m 3h 24m/0h 53m/0h 14m 2.477 kg (5 lb 7.4 oz) M Vag-S pont Epidur lory zambrano 8 9 MCCLEL LEROY,MARINO YKELSI Delivery Location:This [facility] ([facility] Last Filed Vital Signs Vital Sign Reading Time Taken Comments Blood Pressure 111/71 08/04/2024 10:58 AM CDT Pulse 66 08/04/2024 10:58 AM CDT Temperature 36.1 C (97 F) 08/04/2024 10:58 AM CDT Respiratory Rate 16 08/04/2024 10:58 AM CDT Oxygen Saturation 97% 08/04/2024 10:58 AM CDT Inhaled Oxygen Concentration - - Weight 95.3 kg (210 lb) 08/04/2024 10:58 AM CDT Height 165.1 cm (5' 5 ) 08/04/2024 10:58 AM CDT Body Mass Index 34.95 08/04/2024 10:58 AM CDT Plan of Treatment Health Maintenance Due Date Last Done Comments Cervical Cancer Screening 1994 Depression Screening 1994 Hepatitis C Screening 1994 Regular Well Visit/Exam 18-64 2012 Pneumococcal vaccine <65 (2 of 2 - PCV) 04/18/2015 04/18/2014 Influenza Vaccine (#1) 2024 7, 03/06/2015, 02/21/2014, Additional history exists DTaP/Tdap/Td Vaccine (8 - Td or Tdap) 04/18/2024 04/18/2014, 09/06/2006, 01/23/1999, Additional history exists Hepatitis B Screening Completed 06/04/1995 , 1994, 1994 HPV Vaccines Completed 04/27/2008, 01/2008, 12/18/2006 Medical Devices Implanted Type Area Software Quality Assurance Analyst Device Identifier Shelf Expiration Date Model / Serial / Lot [employer] [id number] Josesito Soft Line Upper Jaw Fallopian Tube Small Clip Internal Latex Free - [id number] Implanted:Qty : 1 on 02/25/2018 by López Lockett MD at [facility] Bilateral: Fallopian Tube [employer] 06/17/2019 [id number] / / [id number] Procedures Procedure Name Priority Date/Time Associated Diagnosis Comments XR ANKLE RIGHT 3 OR MORE VIEWS ED 08/04/2024 11:26 AM CDT from Last 3 Months Results * XR Ankle Right 3 or More Views (08/04/2024 11:26 AM CDT) Anatomical Region Laterality Modality Lower Extremities, Ankle Right Compute d Radiography 08/04/2024 11:4 7 AM CDT Narrative 08/04/2024 11:49 AM CDT EXAM DESCRIPTION: XR ANKLE RIGHT 3 OR MORE VIEWS REASON FOR STUDY: fall, pain t to ED for c/o right ankle pain after a fall today. Pt reports she stepped wrong, heard a crack and fell to the ground. Pt denies hitting her head. Pt reports pain is going up to her knee. Swollen lateral aspect. TECHNIQUE: 3 radiographic view(s) of the right ankle . COMPARISON: 11/12/2018 FINDINGS: There is no definite evidence of acute displaced fracture or dislocation involving right ankle. The ankle mortise alignment is grossly well maintained. There is a small calcaneal enthesophyte noted insertion of the Achilles tendon. There is a tiny calcaneal enthesophyte noted insertion of the plantar tendon. There is soft tissue swelling. IMPRESSION: Soft tissue swelling involving the right ankle without definite evidence of acute displaced fracture or dislocation. THIS IS AN ELECTRONICALLY VERIFIED FINAL REPORT 08/04/2024 11:49 AM - Electronically signed by Izabel Boss D.O. PS: PS Report ID: [id number] Reading Location: [id number] Procedure Note Izabel Boss, DO - 08/04/2024 EXAM DESCRIPTION: XR ANKLE RIGHT 3 OR MORE VIEWS REASON FOR STUDY: fall, pain t to ED for c/o right ankle pain after a fall today. Pt reports shestepped wrong, heard a crack and fell to the ground. Pt denies hitting her head.Pt reports pain is going up to her knee. Swollen lateral aspect. TECHNIQUE: 3 radiographic view(s) of the right ankle . COMPARISON: 11/12/2018 FINDINGS: There is no definite evidence of acute displaced fracture or dislocation involving right ankle. The ankle mortise alignment is grossly well maintained. There is a small calcaneal enthesophyte noted insertion ofthe Achilles tendon. There is a tiny calcaneal enthesophyte noted insertionof the plantar tendon. There is soft tissue swelling. IMPRESSION: Soft tissue swelling involving the right ankle without definite evidenceof acute displaced fracture or dislocation. THIS IS AN ELECTRONICALLY VERIFIED FINAL REPORT 08/04/2024 11:49 AM - Electronically signed by Izabel Boss D.O. PS: PS Report ID: [id number] Reading Location: [place] [address] Wilson Gonsalez MD IMG XR PROCEDURES F inal Result from Last 3 Months Insurance [facility] Member Subscriber Plan / Payer ( fective 2017-Present) Name:Muna Carter R Relation to Subscriber:Self Name:FrancoisMuna casper Payer ID:[id number] ([facility]) Type:MEDICAID RISK OTHER Address: [address] [facility] Advance Directives For more information, please contact: [phone] * Full Code (Latest Code Status on File) Date Activated Date Inactivated Comments 02/02/2018 1:18 AM 02/03/2018 2:59 PM * Full Code Date Activated Date Inactivated Comments 10/28/2017 6:31 AM 10/30/2017 5:12 PM Full CPR in case of cardiopulmonary arrest Care Teams Oncologist Relationship Specialty Start Date End Date Veronica Woodward MD [address] [place] [id number] PCP - General Obstetrics and Gynecology 07/31/23
--- OUTSIDE RECORDS SUMMARY | 2024-09-01 17:12 | XMS_ITS | Referral Summary ---
Author Organization [facility] Address [address] [place] [address] Care Team Providers Care Deputy Director Of Nursing Name Role Phone Veronica Woodward MD Primary Care Provider [phone] Encounters Date Type Department Care Team Description 08/04/2024 11:01 AM CDT - 08/04/2024 12:30 PM CDT Emergency [facility] Emergency Department [address] [place] [address] Fall, initial encounter (Primary Dx); Acute right ankle pain Discharge Disposition: Discharge to home or self care from Last 3 Months Allergies Active Allergy Reactions Criticality Noted Date [...] chlorhexidine (PERIDEX) 0.12 % solutionIndica tions:Dentalgi a,Dental infection,Dalton al caries Apply 15 mL to the [...] first child. 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 Gender Identity Not on file Sexual Orientation Not on file Last Filed Vital Signs Vital Sign Reading [...] 08/04/2024 10:58 AM CDT Plan of Treatment Not on file Medical Devices Implanted Type Area Rawhide Trimmer Device Identifier Shelf Expiration Date Model / Serial / Lot [employer] [id number] Filshie Soft Line Upper Jaw Fallopian Tube Small Clip Internal Latex Free - [id number] Implanted:Qty : 1 on 02/25/2018 by López Lockett MD at [facility] Bilateral: Fallopian Tube [employer] 06/17/2019 [id number] / / [id number] Procedures Procedure Name Priority Date/Time Associated Diagnosis [...] Izabel Boss D.O. PS: PS Report ID: [id number] Reading Location: [id number] Procedure Note Izabel Boss DO - 08/04/2024 EXAM DESCRIPTION: XR ANKLE [...] Izabel Boss D.O. PS: PS Report ID: [id number] Reading Location: [place] [address] Wilson Gonsalez MD IMG XR PROCEDURES F inal Result from Last 3 Months Insurance [facility] Member Subscriber Plan / Payer (Ef fective 2017-Present) Name:Muna Carter R Relation to Subscriber:Self Name:Muna Carter Payer ID:[id number] ([facility]) Type:MEDICAID RISK OTHER Address: [address] [facility] Advance Directives For more information, please contact: [phone] * Full Code (Latest Code Status on File) Date Activated Date Inactivated Comments 02/02/2018 1:18 AM 02/03/2018 2:59 PM * Full Code Date Activated Date Inactivated Comments 10/28/2017 6:31 AM 10/30/2017 5:12 PM Full CPR in case of cardiopulmonary arrest Care Teams Deputy Director Of Nursing Relationship Specialty Start Date End Date Veronica Woodward MD [address] [place] [address] PCP - General Obstetrics and Gynecology 07/31/23
--- OUTSIDE RECORDS SUMMARY | 2024-09-01 17:12 | XMS_ITS | Encounter Summary ---
Author Organization [facility] Healthcare Address [address] [facility] [place] [address] Care Team Providers Care Real Estate Processor Name Role Phone No, Physician Primary Care Provider [phone] López Lockett MD Primary Care Provider No, Physician Primary Care Provider [phone] Veronica Woodward MD Primary Care Provider [phone] Encounter Details Date Type Department Care Team (Late st Contact Info) Description 04/22/2017 Orders Only [facility] [address] [place] [id number] Salome Ott RDMS Social History Tobacco Use Types Packs/Day Years Used Date Smoking Tobacco: Never Smokeless Tobacco: Never Comments Unknown Sex and Gender Information Value Date Recorded Sex Assigned at Not on file 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 Gender Identity Not on file Sexual Orientation Not on file documented as of this encounter Plan of Treatment Not on file documented as of this encounter Visit Diagnoses Not on filedocumented in this encounter Additional Health Concerns Infection Onset Date Last Indicated Resolved Time MRSA Comment:09/29/17 and 09/17/17 Nasal Swabs x 2 negative Backloaded March 06, 2011 12/31/2010 12/31/2010 10/28/2017 1 0:23 AM CDT MRSA Comment:09/29/17 and 09/17/17 Nasal Swab x 2 negative/meets criteria to remove flag for MRSA 12/31/2010 12/31/2010 10/06/2017 9:38 AM CDT COVID: Suspected 01/22/2021 01/22/202101/22/2021 3:59 PM CDT Exposure, COVID-19 Comment:Added automatically based on COVID19 lab answers indicating exposure risk 05/15/2021 05/15/2021 05/15/2021 2:[address] COVID: Suspected 05/15/2021 05/15/2021 05/15/2021 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 INSTRUCTOR COVID19 05/15/2021 05/15/2021 05/29/2021 3:07 AM SCIENCE INSTRUCTOR COVID: Suspected 02/20/2023 02/20/2023 02/20/2023 9:15 AM CDT documented as of this encounter Care Teams Real Estate Processor Relationship Specialty Start Date End Date No, Physician PCP - General 10/07/16 03/22/19 López Lockett MD [address] [facility] [address] [address] PCP - General 03/23/19 05/14/21 No, Physician PCP - General 05/15/21 07/30/23 Veronica Woodward MD [address] [facility] [facility] [address] [place] [id number] PCP - General Obstetrics and Gynecology 07/31/23 documented as of this encounter
[2024-09-01 17:16] VITALS: BP 143/80; PULSE 85; RESP 16; TEMP 36.4; O2SAT 100
--- NOTE | 2024-09-01 17:16 | ED_ITS ---
HPI - Dental/Oral General Chief complaint: Ear Stated complaint: tooth and Ear Pain Time Seen by Provider: 09/01/24 17:16 Source: patient Mode of arrival: ambulatory History of Present Illness HPI Narrative: 28 y/o female presented for c/o right upper dental and right and ear pain. Onset yesterday. Says she has a broken tooth in the area that flares up sometimes. Also says yesterday the ear felt itchy, she put her finger inside her ear and felt a 'pop' and has had pain to the ear and right face since then. Denies decreased hearing, ear drainage, tinnitus, dizziness, difficulty swallowing or fever. Taking ibuprofen. MD Complaint: tooth pain Related Data Allergies Allergy/AdvReac Type Severity Reaction Status Date / Time amoxicillin Allergy Severe Anaphylactic Verified 09/01/24 17:18 Shock clindamycin Allergy Severe Swelling Verified 09/01/24 17:18 of Lip/Tongue/Throat Penicillins Allergy Severe Anaphylactic Verified 09/01/24 17:18 Shock sumatriptan Allergy Rash Verified 09/01/24 17:18 Review of Systems Review of Systems: [facility] Past Medical History Medical History Anxiety and depression Surgical History Surgical History History of tonsillectomy and adenoidectomy History of tubal ligation Social History Social History Smoking status: Never smoker Alcohol intake: current Substance use: never Living arrangements: with family Gender identity (if verbalized by the patient): Female Comments At time of signature, I have reviewed and agree with nursing past medical, surgical, social and family history unless otherwise noted. Please see nursing chart for further information. There is no relevant family history pertinent to the presenting complaint Exam Narrative: GENERAL: Appears in pain; no acute distress. HEAD: Normocephalic, atraumatic. EYES: EOMI. No redness or drainage. Conjunctivae normal. ENT: Dental pain location of #2,3, no swelling erythema or drainage, no facial swelling Mucous membranes pink and moist. TMs normal bilaterally. Throat normal.no dysphagia, odynophagia, dysphonia, or dyspnea. No uvular deviation or soft palate edema. NECK: Normal AROM. No lymphadenopathy. no induration below mandible, no neck pain. CHEST: No respiratory distress. Clear to auscultation. HEART: Regular rate and rhythm. No murmur appreciated. SKIN: Warm, dry, no rash. Normal skin turgor. NEURO: No focal deficits. Alert and oriented x3. Gait steady. Course Course Emergency Course: Patient is aware of diagnosis, understands and agrees to treatment plan. Anticipatory guidance given. Patient agrees to follow-up as directed and is aware of reasons to seek care at the emergency department. Portions of this record may have been created with voice recognition software Level of Care: Express Care Visit MDM - Dental/Oral MDM Narrative Medical decision making narrative: Patients pain and complaint coupled with physical findings are consistent with dentalgia. There are no focal signs of space occupying lesions that are compromising to the airway; Patient is non-toxic appearing. The floor of the mouth is soft with no signs of Fredis's Angina; Patient is without trismus or drooling and able to swallow secretions. Patient is felt appropriate for discharge home with dental follow up. Differential Diagnosis Differential diagnosis: Likely gingival abscess, dental caries, toothache, dental abscess, fracture of tooth, aphthous ulcer and other (Otitis externa, TM rupture, cholesteatoma, foreign body, auricular perichondritis otitis media, bullous myringitis, mastoiditis, eustachian tube dysfunction) Discharge Plan Discharge Clinical Impression: Toothache Patient Disposition: Home Condition: Stable Instructions: Antibiotic Form, Earache (ED), Toothache (ED) Additional Instructions: Take antibiotic as directed May apply heat or ice to the face Gentle brushing and flossing. Rinse mouth with warm salt water at least 2 times a day. Alternate Tylenol and ibuprofen as needed for pain Follow-up with the dentist as soon as possible--see the list provided Go to the ER for worsening symptoms or concerns Patient Language: Korean Prescriptions: New ibuprofen 800 mg tablet 800 mg PO TID PRN (Reason: pain) Qty: 15 0RF doxycycline hyclate 100 mg tablet 100 mg PO BID 7 Days Qty: 14 0RF No Action nitrofurantoin macrocrystal 100 mg capsule 100 mg PO Q12H Qty: 10 5RF Rx Instructions: must administer with a meal/food Follow-up/Referrals: Trace,Veronica Delacruz MD [Primary Care Provider] - Time of Disposition: 17:25
== END 2024-09-01 17:29 | disposition home or self-care (01) ==
PROVIDERS: Emergency Provider Nurse Practitioner Family; PCP Family Medicine
DX: K08.89 Other specified disorders of teeth and supporting structures (principal)
CPT/HCPCS: 99213; G0463